=== PATIENT | female | born 2000 | race Two or more races ===

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

== ENCOUNTER 2020-11-04 19:57 | Emergency (ER) | payer OTHER, SELFPAY ==
[2020-11-04 19:58] VITALS: BP 113/72; PULSE 87; RESP 20; TEMP 36.7; O2SAT 97; BMI 22.8
[2020-11-04] MEDS: hydrOXYzine PAM 25 MG Capsule 50 MG PO (20:26)
[2020-11-04] MEDS: LORazepam 1 MG Tablet PO (20:27)
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
== END 2020-11-04 21:22 | disposition home or self-care (01) ==
PROVIDERS: Emergency Provider Emergency Medicine
DX: F41.9 Anxiety disorder, unspecified (principal)
CPT/HCPCS: 99283